=== PATIENT | male | born 1965 | race Caucasian/White ===

== ENCOUNTER 2018-06-25 09:38 | Day surgery (SDC) | payer OTHER ==
[~2018-06-25 09:38] MED LIST: CEFAZOLIN 2 GM/50 ML (PMX) 50 ML IVPB; EPINEPHrine 0.1 MG/ML SYG; LIDOCAINE 2% (SDV) 5 ML INJ; ROCURONIUM 50 MG INJ; SOD CHLORIDE 0.9% 1,000 ML IV
[2018-06-25] MEDS ORDERED: FENTAnyl 50 MCG/ML VIAL IV ×2 (10:30)
[2018-06-25] MEDS ORDERED: ALBUTEROL 0.083% (NEB) 2.5 MG/3 ML AMP HHN (10:30)
[2018-06-25] MEDS ORDERED: ONDANSETRON 4 MG INJ IV ×2 (10:30→13:30)
[2018-06-25] MEDS ORDERED: HYDROmorphONE 1 MG/5 ML IV SYRINGE IV ×3 (10:30)
[2018-06-25] MEDS ORDERED: LABETALOL HCL 20MG INJ IV (10:30)
[2018-06-25] MEDS ORDERED: DIPHENHYDRAMINE 50 MG INJ IV (10:30)
[2018-06-25] MEDS ORDERED: MEPERIDINE 25 MG INJ IV (10:30)
[2018-06-25] MEDS: ACETAMINOPHEN 500 MG TAB PO (10:47)
[2018-06-25] MEDS: SOD CHLORIDE 0.9% 1,000 ML IV (10:48)
[2018-06-25] MEDS ORDERED: PROPOFOL 200 ML (12:10)
[2018-06-25] MEDS ORDERED: FENTAnyl 50 MCG/ML VIAL (12:11)
[2018-06-25] MEDS ORDERED: MIDAZOLAM 1 MG/ML 2 ML INJ (12:11)
[2018-06-25] MEDS ORDERED: VASOPRESSIN 20 UNITS INJ ×2 (12:33→12:38)
[2018-06-25] MEDS ORDERED: CEFAZOLIN 1 GM INJ (12:38)
[2018-06-25] MEDS ORDERED: ONDANSETRON 4 MG INJ (12:39)
[2018-06-25] MEDS ORDERED: DEXAMETHASONE 4 MG/ML 5 ML INJ (12:39)
[2018-06-25] MEDS: LIDOCAINE 1%/EPI (1:100,000) (MDV) 20 ML (12:42)
[2018-06-25] MEDS: BUPIVACAINE 0.25%/EPI (SDV) 30 ML INJ (12:42)
[2018-06-25] MEDS ORDERED: SUGAMMADEX SODIUM 200 MG/2 ML VIAL IV (12:47)
[2018-06-25] MEDS ORDERED: LACTATED RINGER'S 1,000 ML IV ×2 (13:03)
[2018-06-25] MEDS ORDERED: ALBUTEROL 0.083% (NEB) 2.5 MG/3 ML AMP (13:05)
[2018-06-25] MEDS ORDERED: PROVENTIL HFA 6.7GM INHALER (13:08)
[2018-06-25] MEDS ORDERED: ALBUTEROL HFA 8 GM INHALER (13:08)
[2018-06-25] MEDS ORDERED: MEPERIDINE 100 MG INJ (13:13)
[2018-06-25] MEDS ORDERED: NALOXONE (0.4 MG/ML) INJ (13:29)
[2018-06-25] MEDS ORDERED: ACETAMINOPHEN 325 MG TAB PO (13:30)
== END 2018-06-25 15:28 | disposition home or self-care (01) ==
LOC: SDS 09:38
DX: D17.1 Benign lipomatous neoplasm of skin and subcutaneous tissue of trunk (principal); E11.9 Type 2 diabetes mellitus without complications
CPT/HCPCS: 11404; 82962; 88307